=== PATIENT | male | born 1980 | race Caucasian/White ===

== ENCOUNTER → 2021-07-06 | Outpatient (CLI) | payer OTHER ==
--- NOTE | 2021-07-06 13:56 | REP ---
INDICATION: LEFT BREAST MASS DIAG BILATERAL; LEFT BREAST MASS. COMPARISON: None. TECHNIQUE: MLO and CC views bilateral breasts with tomosynthesis. Left breast ultrasound. FINDINGS: There is bilateral retroareolar fibroglandular tissue, asymmetrically more so on the left than on the right. Findings are compatible with asymmetric gynecomastia. No suspicious mass is seen mammographically and there are no clustered microcalcifications. Left breast ultrasound performed at the site of the palpable lump in the retroareolar region. There is hypoechoic tissue which wider than tall and having a sonographic appearance compatible with gynecomastia. IMPRESSION: BIRADS/ACR category 2, benign. There are mammographic and sonographic findings of asymmetric gynecomastia on the left. These findings should not deter biopsy if there is a clinically suspicious palpable mass present. This mammogram was interpreted with the aid of an FDA-approved computer-aided detection system. The patient letter being requested is M2. RECOMMENDATION: Recommend clinical correlation and follow-up. A benign-appearing mammogram and ultrasound should not deter biopsy if there is a clinically suspicious palpable mass present. <Electronically signed by Lisandro Burdick > 07/06/21 [id number]
== END ==
LOC: M WHC 10:57
PROVIDERS: ATTEND Physician Assistant
DX: N63.20 Unspecified lump in the left breast, unspecified quadrant (principal)
CPT/HCPCS: 76642; 77066; G0279

== ENCOUNTER → 2021-11-25 | Outpatient (CLI) | payer OTHER | LOC: M PLALAB 14:52 | PROVIDERS: ATTEND Nurse Practitioner Family | DX: N62 Hypertrophy of breast (principal) ==